=== PATIENT | male | born 1950 | race Caucasian/White ===

== ENCOUNTER 2022-12-01 02:36 | Observation (INO) | payer MEDICARE ==
[2022-12-01] MEDS ORDERED: MORPHINE SULFATE 4 MG INJ IV ONE (03:07)
[2022-12-01] MEDS ORDERED: Zofran 4 MG/2 ML VIAL IV ONE (03:07)
--- NOTE | 2022-12-01 03:12 | ERPHSYRPT ---
- History of Present Illness Time Seen by Provider: 12/01/22 03:10 Historian: patient Exam Limitations: no limitations Patient Subjective Stated Complaint: pt states crohns flare up Triage Nursing Assessment: pt ambulated into the er; pt is axo x4; c/o abd pain; pt is yelling out; pt is holding abd; garding abd; tenderness to abd; abd is round, distended; active bowel sounds in all quads; last BM 11/30/22; c/o vomiting; skin PDW; no respiratory distress; hypertension Physician History: Patient is a 72-year-old male presents to our emergency department for evaluation of abdominal pain. Patient has a history of Crohn's colitis and feels that he is currently experiencing a flareup. Symptoms started yesterday at approximately 3 PM. Patient states his symptoms have been progressive. Patient thought the pain would eventually go away however symptoms worsen. Patient states he mowed his lawn today which he feels acutely worsened patient's symptoms. Patient tried eating however he vomited up his meal. Patient states he cannot tolerate p.o. He had 1 regular bowel movement yesterday. Patient's pain described as an ache and is localized to the left lower quadrant. Palpation reproduces symptoms. No trauma. No fever. No diarrhea. Patient's GI doctor is Dr. Arana from [facility]. Patient voices no other complaints or concerns at this time. Portions of this note were created with voice recognition technology. There may be grammatical, spelling, punctuation or sound alike errors Timing/Duration: yesterday Activities at Onset: none Quality: aching Abdominal Pain Onset Location: generalized abdomen Pain Radiation: no radiation Severity of Pain-Max: moderate Severity of Pain-Current: mild Modifying Factors: Improves With: palpation Associated Symptoms: vomiting Previous symptoms: same symptoms as today (Symptoms today are similar to prev ious symptoms of Crohn's colitis flareup) Allergies/Adverse Reactions: No Known Drug Allergies Allergy (Verified 12/01/22 02:46) Home Medications: Amlodipine Besylate 5 mg [Norvasc 5 mg] 5 mg PO BID 04/15/16 [History] Aspirin [Aspir-Low] 81 mg PO DAILY 04/15/16 [History] Cholecalciferol (Vitamin D3) [Vitamin D] 400 unit PO DAILY 04/15/16 [History] Clopidogrel Bisulfate [PLAVIX 75 MG Tablet] 75 mg PO DAILY 04/15/16 [History] Insulin Lispro [Humalog] 20 unit SQ BID 04/15/16 [History] Magnesium Oxide 400 mg [Mag-Ox 400] 400 mg PO TID 04/15/16 [History] Metformin HCl [Glucophage] 1,000 mg PO BID 04/15/16 [History] Metoprolol Tartrate 50 mg [Lopressor 50 MG] 50 mg PO BID 04/15/16 [History] Terazosin HCl 5 mg PO HS 04/15/16 [History] azaTHIOprine [Azathioprine] 100 mg PO BID 04/15/16 [History] hydroCHLOROthiazide [Hydrochlorothiazide] 12.5 mg PO DAILY 04/15/16 [History] Atorvastatin Calcium [Lipitor 20MG Tablet] 20 mg PO DAILY 12/01/22 [History] Canagliflozin [Invokana] 300 mg PO DAILY 12/01/22 [History] Nitroglycerin 0.4 mg Tablet [Nitrostat 0.4 MG Tablet] 0.4 mg SL UD PRN 12/01/22 [History] PANTOPRAZOLE 40 mg Tablet [Protonix 40MG Tablet] 40 mg PO DAILY 12/01/22 [History] Pregabalin 150 mg PO BID 12/01/22 [History] Tamsulosin HCl 0.4 mg [Flomax 0.4 MG] 0.4 mg PO DAILY 12/01/22 [History] glipiZIDE [Glipizide] 5 mg PO DAILY 12/01/22 [History] lisinopriL [Lisinopril] 40 mg PO BID 12/01/22 [History] Hx Tetanus, Diphtheria Vaccination/Date Given: No Hx Influenza Vaccination/Date Given: Yes Hx Pneumococcal Vaccination/Date Given: No Immunizations Up to Date: Yes Travel Risk - International Travel Have you traveled outside of the country in past 3 weeks: No - Coronavirus Screening Are you exhibiting any of the following symptoms?: No Close contact with a COVID-19 positive Pt in past 14-21 Days: No - Vaccine Status Have you recieved a Covid-19 vaccination: No Remedial Reading Teacher: Moderna - Vaccination Dates Date of 2cond Vaccination (if applicable): 2020 - Review of Systems Constitutional: No Symptoms, No Fever, No Chills Eyes: No Symptoms Ears, Nose, & Throat: No Symptoms Respiratory: No Symptoms, No Cough, No Dyspnea Cardiac: No Symptoms, No Chest Pain, No Edema, No Syncope Abdominal/Gastrointestinal: No Symptoms, No Abdominal Pain, No Nausea, No Vomiting, No Diarrhea Genitourinary Symptoms: No Symptoms, No Dysuria Musculoskeletal: No Symptoms, No Back Pain, No Neck Pain Skin: No Symptoms, No Rash Neurological: No Symptoms, No Dizziness, No Focal Weakness, No Sensory Changes Psychological: No Symptoms Endocrine: No Symptoms Hematologic/Lymphatic: No Symptoms Immunological/Allergic: No Symptoms All Other Systems: Reviewed and Negative - Past Medical History Pertinent Past Medical History: No Neurological History: No Pertinent History ENT History: Cataracts, Glaucoma Cardiac History: Coronary Artery Disease, Hypertension, Myocardial Infarction ([place]) Respiratory History: No Pertinent History Endocrine Medical History: Diabetes Type II Musculoskeletal History: Osteoarthritis GI Medical History: Crohns Disease History: No Pertinent History Psycho-Social History: No Pertinent History Male Reproductive Disorders: No Pertinent History - Past Surgical History Past Surgical History: Yes Neuro Surgical History: No Pertinent History Cardiac: Cardiac Catheterization, Cardiac Stent Respiratory: No Pertinent History Gastrointestinal: Colon Resection Genitourinary: No Pertinent History Musculoskeletal: No Pertinent History Male Surgical History: No Pertinent History - Social History Smoking Status: Former smoker Exposure to second hand smoke: No Drug Use: none Patient Lives Alone: Yes - Nursing Vital Signs Nursing Vital Signs: Initial Vital Signs Pulse Rate 99 H 12/01/22 02:48 Blood Pressure 154/93 12/01/22 02:48 O2 Sat by Pulse Oximetry 95 12/01/22 02:48 Pain Scale Pain Intensity 5 - Physical Exam General Appearance: no apparent distress, alert Eye Exam: PERRL/EOMI, eyes nml inspection Ears, Nose, Throat Exam: normal ENT inspection, pharynx normal, moist mucous membranes Neck Exam: normal inspection, non-tender, supple, full range of motion Respiratory Exam: normal breath sounds, lungs clear, airway intact, No respiratory distress Cardiovascular Exam: regular rate/rhythm, normal heart sounds Gastrointestinal/Abdomen Exam: soft, tenderness (Diffuse tenderness more so at the left lower quadrant), distention (Abdomen is distended. Overlying soft tissue intact.), No mass Back Exam: normal inspection, normal range of motion, No CVA tenderness, No vertebral tenderness Extremity Exam: normal inspection, normal range of motion, pelvis stable Neurologic Exam: alert, oriented x 3, cooperative, normal mood/affect, nml cereb ellar function, sensation nml, No motor deficits Skin Exam: normal color, warm, dry Lymphatic Exam: No adenopathy SpO2 Interpretation: normal SpO2: 95 O2 Delivery: Room Air - Course Nursing assessment & vital signs reviewed: Yes - CT Exams Abdomen/Pelvis CT Interpretation: Tele-radiologist Report (Acute/subacute small bowel obstruction with possible transition point noted in the distal ileal loops in the right lower quadrant associated with mild adjacent mesenteric fat extending and increased vascularity.) Ordered Tests: Active Orders 24 hr Category Date Time Status IV Insertion STAT Care 12/01/22 03:07 Active NGT [Gastric Tube Insertion] STAT Care 12/01/22 04:37 Active ABDOMEN AND PELVIS W/0 CONTRAS [CT] Stat Exams 12/01/22 03:08 Completed CBC W DIFF Stat Lab 12/01/22 03:15 Completed CMP Stat Lab 12/01/22 03:15 Completed LIPASE Stat Lab 12/01/22 03:15 Completed TROPONIN Q4H Lab 12/01/22 03:15 Completed TROPONIN Q4H Lab 12/01/22 07:15 Ordered TROPONIN Q4H Lab 12/01/22 11:15 Ordered UA W/RFX UR CULTURE Stat Lab 12/01/22 03:07 Ordered Medication Summary Generic Name Dose Route Start Last Admin Trade Name Freq PRN Reason Stop Dose Admin Sodium Chloride 1,000 mls @ 100 mls/hr 12/01/22 03:15 12/01/22 03:32 Sodium Chloride 0.9% 1000 Ml IV 12/31/22 03:14 100 mls/hr .Q10H KENROY Administration Discontinued Medications Generic Name Dose Route Start Last Admin Trade Name Freq PRN Reason Stop Dose Admin Morphine Sulfate 4 mg 12/01/22 03:07 12/01/22 03:32 Morphine Sulfate 4 Mg/Ml Injection IV 12/01/22 03:08 4 mg STAT ONE Administration Morphine Sulfate Confirm 12/01/22 03:16 Morphine Sulfate 4 Mg/Ml Injection Administered 12/01/22 03:17 Dose 4 mg .ROUTE .STK-MED ONE Ondansetron HCl 4 mg 12/01/22 03:07 12/01/22 03:32 Ondansetron Hcl 4 Mg/2 Ml Vial IV 12/01/22 03:08 4 mg STAT ONE Administration Ondansetron HCl Confirm 12/01/22 03:16 Ondansetron Hcl 4 Mg/2 Ml Vial Administered 12/01/22 03:17 Dose 4 mg .ROUTE .STK-MED ONE Lab/Rad Data: Laboratory Result Diagrams 12/01/22 03:15 12/01/22 03:15 Laboratory Results 12/01/22 12/01/22 12/01/22 Range/Units 03:15 03:15 03:15 WBC 10.0 (4.0-10.5) x10^3/uL RBC 4.84 (4.1-5.6) x10^6/uL Hgb 15.6 (12.5-18.0) g/dL Hct 49.6 (42-50) % MCV 102.5 H (78-100) fL MCH 32.2 H (26-32) pg MCHC 31.5 L (32-36) g/dL RDW 14.1 H (11.5-14.0) % Plt Count 304 (150-450) x10^3/uL MPV 9.5 (7.5-11.0) fL Gran % 85.5 H (36.0-66.0) % Immature Gran % (Auto) 0.5 H (0.00-0.4) % Nucleat RBC Rel Count 0.0 (0.00-0.1) % Eos # (Auto) 0.01 (0-0.5) x10^3/uL Immature Gran # (Auto) 0.05 H (0.00-0.03) x10^3u/L Absolute Lymphs (auto) 0.62 L (1.0-4.6) x10^3/uL Absolute Monos (auto) 0.74 (0.0-1.3) x10^3/uL Absolute Nucleated RBC 0.00 (0.00-0.01) x10^3u/L Lymphocytes % 6.2 L (24.0-44.0) % Monocytes % 7.4 (0.0-12.0) % Eosinophils % 0.1 (0.00-5.0) % Basophils % 0.3 (0.0-0.4) % Absolute Granulocytes 8.53 H (1.4-6.9) x10^3/uL Basophils # 0.03 (0-0.4) x10^3/uL Sodium 139 (137-145) mmol/L Potassium 4.3 (3.5-5.1) mmol/L Chloride 101 (98-107) mmol/L Carbon Dioxide 26 (22-30) mmol/L Anion Gap 16.0 H (5-15) MEQ/L BUN 19 (9-20) mg/dL Creatinine 0.84 (0.66-1.25) mg/dL Estimated GFR > 60.0 ML/MIN Glucose 198 H (74-106) mg/dL Calcium 11.2 H (8.4-10.2) mg/dL Total Bilirubin 1.80 H (0.2-1.3) mg/dL AST 78 H (17-59) U/L ALT 68 H (0-50) U/L Alkaline Phosphatase 69 (38-126) U/L Troponin I < 0.012 (0.000-0.034) ng/mL Serum Total Protein 8.1 (6.3-8.2) g/dL Albumin 4.9 (3.5-5.0) g/dL Lipase 60 (23-300) U/L - Progress Progress: improved Progress Note: Case discussed with Dr. Bravo general surgeon on-call who advises admission. He will see patient and the hospital. Conversation took place at 4:43 AM. Plan of care discussed with patient. He agrees to admission at [facility] for further evaluation and treatment. Portions of this note were created with voice recognition technology. There may be grammatical, spelling, punctuation or sound alike errors 12/01/22 04:43 Patient is a 72-year-old male with a history of diabetes, coronary artery disease, hypertension cardiac sten, Crohn's disease and small bowel resection presents to our ED for evaluation of 1 day history of progressive abdominal distention and pain. 1 bout of nonbloody nonbilious emesis. Physical exam reveals diffuse abdominal distention and tenderness however more so in the left lower quadrant. CT scan reveals a small bowel obstruction with a transition point at the right distal ileum. There is associated mesenteric stranding at this area. CBC CMP otherwise nonremarkable. No leukocytosis. Lipase within normal limits. Troponin negative. Patient received morphine for pain control and Zofran for nausea. Patient is currently NPO. Liter of normal saline administered. Patient reassessed. He is resting comfortably. Case discussed with of general surgery who accepts consultation. Case to be discussed with hospitalist Dr. Ayon. Plan of care discussed with patient. NG tube placed to low intermittent suction. Patient agrees to admission to [facility] for further evaluation and treatment. Portions of this note were created with voice recognition technology. There may be grammatical, spelling, punctuation or sound alike errors Complexity of problems addressed is high. Severe exacerbation of chronic condition. This condition is a threat to bodily function. No critical care time Complexity of data reviewed and analyzed is extensive. Test ordered test reviewed. Results analyzed. Clinical correlation made between the findings of laboratory studies/ imaging studies versus history and physical examination. Case and management discussed with on-call general surgeon and hospitalist Risk complication and or risk morbidity/mortality patient management is high. Patient received IV controlled pain medication/morphine. Patient will require hospitalization for further evaluation and treatment. Vital stable. Diagnosis is small bowel obstruction. Time spent to admit patient approximately 15 minutes. Plan of care established for shared decision making. Patient declined additional pain medication. He voices no other complaints or concerns at this time. Portions of this note were created with voice recognition technology. There may be grammatical, spelling, punctuation or sound alike errors 12/01/22 04:[address] Ayon at [address] Ayon accepts admission to observation. 12/01/22 05:[address] Michelle Briggs Will see patient in: hospital (observation) Counseled pt/family regarding: lab results, diagnosis - Departure Departure Disposition: Observation Clinical Impression: Small bowel obstruction, Bilateral renal exophytic cyst, Abdominal pain Condition: Stable Critical Care Time: No Referrals: CHI KIMBLE [Primary Care Provider] - Follow up/PCP as directed
[2022-12-01] MEDS ORDERED: Sodium Chloride 0.9% 1000 ML 1,000 ML IV SCH (03:15)
[2022-12-01] MEDS ORDERED: Sodium Chloride 0.9% 1000 ML 1,000 ML ONE (03:16)
[2022-12-01] MEDS ORDERED: MORPHINE SULFATE 4 MG INJ ONE (03:16)
[2022-12-01] MEDS ORDERED: Zofran 4 MG/2 ML VIAL ONE (03:16)
[2022-12-01 03:27] LABS: Absolute Neutrophil Ct (ANC) 8.53 x10^3/uL (1.4-6.9); BASOPHIL % 0.3 % (0.0-0.4); Basophil (Absolute #) 0.03 x10^3/uL (0-0.4); Eosinophil % 0.1 % (0.00-5.0); Eosinophil (Absolute #) 0.01 x10^3/uL (0-0.5); Hematocrit 49.6 % (42-50); Hemoglobin 15.6 g/dL (12.5-18.0); IMMATURE GRAN # 0.05 x10^3u/L (0.00-0.03); IMMATURE GRAN % 0.5 % (0.00-0.4); Lymphocyte (Absolute #) 0.62 x10^3/uL (1.0-4.6); Lymphocytes % 6.2 % (24.0-44.0); Mean Cell Volume 102.5 fL (78-100); Mean Corpuscular Hemoglobin 32.2 pg (26-32); Mean Corpuscular Hgb Concent. 31.5 g/dL (32-36); Mean Platelet Volume 9.5 fL (7.5-11.0); Monocyte (Absolute #) 0.74 x10^3/uL (0.0-1.3); Monocytes % 7.4 % (0.0-12.0); Neutrophil % 85.5 % (36.0-66.0); Platelet Count 304 x10^3/uL (150-450); Red Blood Count 4.84 x10^6/uL (4.1-5.6); Red Cell Distribution Width 14.1 % (11.5-14.0)
[2022-12-01 03:43] LABS: ALBUMIN 4.9 g/dL (3.5-5.0); ALKALINE PHOSPHATASE 69 U/L (38-126); BLOOD UREA NITROGEN 19 mg/dL (9-20); CHLORIDE 101 mmol/L (98-107); Calcium 11.2 mg/dL (8.4-10.2); Carbon Dioxide 26 mmol/L (22-30); Creatinine 1 0.84 mg/dL (0.66-1.25); EST GLOMERULAR FILTRATION RATE > 60.0 ML/MIN; Glucose 198 mg/dL (74-106); LIPASE 60 U/L (23-300); Potassium 4.3 mmol/L (3.5-5.1); SGOT/AST 78 U/L (17-59); SGPT/ALT 68 U/L (0-50); SODIUM 139 mmol/L (137-145); Total Protein 8.1 g/dL (6.3-8.2)
--- NOTE | 2022-12-01 04:28 | XRAY ---
CLINICAL HISTORY:pain COMPARISON:None TECHNIQUE:Multiple axial sections of CT scan of the abdomen and pelvis were carried out without non-ionic IV contrast enhancement. Coronal and Sagittal reformations were also acquired.Total DLP 847.7mGy-cm CTDl 16.9mGY FINDINGS: The jejunal and ileal loops appear dilated maximum [id number] caliber of one loop measures 3.9cm. The dilated loops appear fecal loaded giving small bowel feces signs. There is a possible abrupt transition noted in the distal ileal loops in the right lower abdomen. There is mild adjacent mesenteric fat stranding along with increased vascularity noted. No free fluid seen No evidence of pneumoperitoneum. The visulaized bowel loop appears unremarkable. Surgical sutures in the bowel loops in the right lower quadrant. Overall imaging findings are Suggestive of acute/ subacute intestinal obstruction. Liver is normal in size. No focal mass seen. Intra and extra-hepatic biliary ducts are not dilated. Few calcified Granuloma noted in the Caudate lobe Gallbladder appears normal. No evidence of radio-opaque calculus, wall thickening or pericholecystic fluid. The spleen appears normal. No evidence of focal mass was seen. Pancreas appears normal. No evidence of mass lesion was noted. Both adrenal glands appear normal. No discrete lesion was noted. Both kidneys are normal in size. No evidence of focal mass, calculus or hydronephrosis was noted. Exophytic simple cortical cyst noted in both kidneys, on the right side it measures 3.8 x 2.9cm and on left it measures 1.3 x 0.8cm. Possible parapelvic cysts in the left kidney. The urinary bladder is smooth in outline, without evidence of wall thickening, vesical calculus or intraluminal mass. Pelvic viscera appear normal. No significant lymphadenopathy was seen. Atheromatous changes noted in aorta and its branches On appropriate lung window settings, There is ground-glass haze with prominent reticulation noted in the right lung base On bone window settings, Degenerative changes noted in the spine With multilevel osteophytes and vacuum phenomena IMPRESSION: 1. Overall imaging findings are suggestive of acute/subacute small bowel obstruction with a possible transition point noted in the distal ileal loops in the right lower abdomen associated with mild adjacent mesenteric fat extending and increased vascularity. Would recommend clinical correlation 2. No evidence of ascites or pneumoperitoneum. The [facility] ER office was called at [phone] at 03:19 AM SENIOR ENGINEERING TEAM LEADER, 12/01/2022 and the results were verbally communicated with Freya Electronically Signed by: Davidson Cunha MD. (12/01/2022 03:28:05 SENIOR ENGINEERING TEAM LEADER)
[2022-12-01] MEDS ORDERED: Zofran 4 MG/2 ML VIAL IV PRN (05:57)
[2022-12-01] MEDS ORDERED: HUMALOG SQ PRN (05:57)
--- NOTE | 2022-12-01 06:06 | PCM.HP ---
History of Present Illness - Chief Complaint Chief Complaint: Small bowel obstruction, abdominal pain History of Present Illness: is a 72 year old male with hx of Crohn's, HTN, DMII, BPH, HLP presented to ER with c/o severe left lower abd pain started yesterday. Pain is associated with nausea and vomiting. He had 1 BM since yesterday, and now unable to tolerate any oral foods/meds. In ER, CT scan shows SBO, and now admitted for this. Has NGT and NPO. General surgery has been consulted by ER and will see pt in AM He has had SBOs in the past - last one 5 yrs ago - and they both resolved on their own. Denies fever. No bloody stools. - Review of Systems Constitutional: No Symptoms Eyes: No Symptoms Ears, Nose, & Throat: No Symptoms Respiratory: No Symptoms Cardiac: No Symptoms Abdominal/Gastrointestinal: Abdominal Pain, Nausea, Vomiting Genitourinary Symptoms: No Symptoms Musculoskeletal: No Symptoms Skin: No Symptoms Neurological: No Symptoms Psychological: No Symptoms Endocrine: No Symptoms Hematologic/Lymphatic: No Symptoms Immunological/Allergic: No Symptoms Medications & Allergies Home Medications: Home Medication List Amlodipine Besylate 5 mg [Norvasc 5 mg] 5 mg PO BID 04/15/16 [History Confirmed 12/01/22] Aspirin [Aspir-Low] 81 mg PO DAILY 04/15/16 [History Confirmed 12/01/22] Cholecalciferol (Vitamin D3) [Vitamin D] 400 unit PO DAILY 04/15/16 [History Confirmed 12/01/22] Clopidogrel Bisulfate [PLAVIX 75 MG Tablet] 75 mg PO DAILY 04/15/16 [History Confirmed 12/01/22] Insulin Lispro [Humalog] 20 unit SQ BID 04/15/16 [History Confirmed 12/01/22] Magnesium Oxide 400 mg [Mag-Ox 400] 400 mg PO TID 04/15/16 [History Confirmed 12/01/22] Metformin HCl [Glucophage] 1,000 mg PO BID 04/15/16 [History Confirmed 12/01/22] Metoprolol Tartrate 50 mg [Lopressor 50 MG] 50 mg PO BID 04/15/16 [History Confirmed 12/01/22] Terazosin HCl 5 mg PO HS 04/15/16 [History Confirmed 12/01/22] azaTHIOprine [Azathioprine] 100 mg PO BID 04/15/16 [History Confirmed 12/01/22] hydroCHLOROthiazide [Hydrochlorothiazide] 12.5 mg PO DAILY 04/15/16 [History Confirmed 12/01/22] Atorvastatin Calcium [Lipitor 20MG Tablet] 20 mg PO DAILY 12/01/22 [History Confirmed 12/01/22] Canagliflozin [Invokana] 300 mg PO DAILY 12/01/22 [History Confirmed 12/01/22] Insulin Degludec [Tresiba Flextouch U-100] 65 unit SQ HS 12/01/22 [History Confirmed 12/01/22] Nitroglycerin 0.4 mg Tablet [Nitrostat 0.4 MG Tablet] 0.4 mg SL UD PRN 12/01/22 [History Confirmed 12/01/22] PANTOPRAZOLE 40 mg Tablet [Protonix 40MG Tablet] 40 mg PO DAILY 12/01/22 [History Confirmed 12/01/22] Pregabalin 150 mg PO BID 12/01/22 [History Confirmed 12/01/22] Tamsulosin HCl 0.4 mg [Flomax 0.4 MG] 0.4 mg PO BID 12/01/22 [History Confirmed 12/01/22] glipiZIDE [Glipizide] 5 mg PO DAILY 12/01/22 [History Confirmed 12/01/22] lisinopriL [Lisinopril] 40 mg PO BID 12/01/22 [History Confirmed 12/01/22] Allergies/Adverse Reactions: Allergies Allergy/AdvReac Type Severity Reaction Status Date / Time No Known Drug Allergies Allergy Verified 12/01/22 02:46 - Past Medical History Past Medical History: Yes Neurological History: No Pertinent History ENT History: Cataracts, Glaucoma Cardiac History: Coronary Artery Disease, Hypertension, Myocardial Infarction ([place]) Respiratory History: No Pertinent History Endocrine Medical History: Diabetes Type II Musculoskelatal History: Osteoarthritis GI Medical History: Crohns Disease, GERD History: No Pertinent History Pyscho-Social History: No Pertinent History Male Reproductive Disorders: Prostate Problems - Past Surgical History Past Surgical History: Yes Neuro Surgical History: No Pertinent History Cardiac History: Cardiac Catheterization, Cardiac Stent Respiratory Surgery: No Pertinent History GI Surgical History: Colon Resection Genitourinary Surgical Hx: No Pertinent History Musculskeletal Surgical Hx: No Pertinent History Male Surgical History: No Pertinent History - Social History Smoking Status: Former smoker Exposure to second hand smoke: No Alcohol: Occasionally Drug Use: none Significant Family History: no pertinent family hx - Physical Exam Vital Signs: Vital Signs - 24 hr Pulse BP Pulse Ox 12/01/22 05:01 95 12/01/22 05:00 94 H 111/69 96 12/01/22 04:30 94 H 123/77 92 L 12/01/22 04:01 107/71 92 L 12/01/22 03:31 98 H 122/89 92 L 12/01/22 03:00 130/88 94 L 12/01/22 02:57 147/94 95 12/01/22 02:48 99 H 154/93 95 General Appearance: mild distress Neurologic Exam: alert, oriented x 3, cooperative Eye Exam: PERRL/EOMI, eyes nml inspection Ears, Nose, Throat Exam: normal ENT inspection Neck Exam: normal inspection, non-tender, supple Respiratory Exam: normal breath sounds, lungs clear, airway intact Cardiovascular Exam: regular rate/rhythm, normal heart sounds Gastrointestinal/Abdomen Exam: tenderness, distention, guarding Rectal Exam: deferred Back Exam: normal inspection, normal range of motion Extremity Exam: normal inspection Skin Exam: normal color, warm, dry Results - Labs Lab/Micro Results: Lab Results-Last 24 Hours 12/01/22 12/01/22 12/01/22 Range/Units 03:15 03:15 03:15 WBC 10.0 (4.0-10.5) x10^3/uL RBC 4.84 (4.1-5.6) x10^6/uL Hgb 15.6 (12.5-18.0) g/dL Hct 49.6 (42-50) % MCV 102.5 H (78-100) fL MCH 32.2 H (26-32) pg MCHC 31.5 L (32-36) g/dL RDW 14.1 H (11.5-14.0) % Plt Count 304 (150-450) x10^3/uL MPV 9.5 (7.5-11.0) fL Gran % 85.5 H (36.0-66.0) % Immature Gran % (Auto) 0.5 H (0.00-0.4) % Nucleat RBC Rel Count 0.0 (0.00-0.1) % Eos # (Auto) 0.01 (0-0.5) x10^3/uL Immature Gran # (Auto) 0.05 H (0.00-0.03) x10^3u/L Absolute Lymphs (auto) 0.62 L (1.0-4.6) x10^3/uL Absolute Monos (auto) 0.74 (0.0-1.3) x10^3/uL Absolute Nucleated RBC 0.00 (0.00-0.01) x10^3u/L Lymphocytes % 6.2 L (24.0-44.0) % Monocytes % 7.4 (0.0-12.0) % Eosinophils % 0.1 (0.00-5.0) % Basophils % 0.3 (0.0-0.4) % Absolute Granulocytes 8.53 H (1.4-6.9) x10^3/uL Basophils # 0.03 (0-0.4) x10^3/uL Sodium 139 (137-145) mmol/L Potassium 4.3 (3.5-5.1) mmol/L Chloride 101 (98-107) mmol/L Carbon Dioxide 26 (22-30) mmol/L Anion Gap 16.0 H (5-15) MEQ/L BUN 19 (9-20) mg/dL Creatinine 0.84 (0.66-1.25) mg/dL Estimated GFR > 60.0 ML/MIN Glucose 198 H (74-106) mg/dL Calcium 11.2 H (8.4-10.2) mg/dL Total Bilirubin 1.80 H (0.2-1.3) mg/dL AST 78 H (17-59) U/L ALT 68 H (0-50) U/L Alkaline Phosphatase 69 (38-126) U/L Troponin I < 0.012 (0.000-0.034) ng/mL Serum Total Protein 8.1 (6.3-8.2) g/dL Albumin 4.9 (3.5-5.0) g/dL Lipase 60 (23-300) U/L - Radiology Impressions Radiology Exams & Impressions: Radiology Procedures Category Date Time Status ABDOMEN AND PELVIS W/0 CONTRAS [CT] Stat Exams 12/01/22 03:08 Completed CHEST 1 VIEW (PORTABLE) Stat Exams 12/01/22 05:00 Taken Assessment/Plan (1) Small bowel obstruction Current Visit: Yes Status: Acute Assessment & Plan: SBO noted on CT scan. NPO and NGT to suction. Surgery to see. Prn morphine for pain Code(s): K56.609 - UNSP INTESTNL OBST, UNSP TO PARTIAL VERSUS COMPLETE OBST (2) Crohn disease Current Visit: Yes Status: Acute Assessment & Plan: Denies any recent bloody stools. Now here with SBO - managing that Code(s): K50.90 - CROHN'S DISEASE, UNSPECIFIED, WITHOUT COMPLICATIONS (3) Hypercalcemia Current Visit: Yes Status: Acute Assessment & Plan: Ca 11.2, dehydration and thiaizide, + Vit D. Holding all meds tonight due to NPO status. Will monitor calcium on IVF. If this remains a concern, then will need to hold Vit D and thiazide in longer term Code(s): E83.52 - HYPERCALCEMIA (4) Transaminitis Current Visit: Yes Status: Acute Assessment & Plan: Bili 1.8, AST 78, ALT 68, AP is 69. CT scan mentioned "normal liver". No stone or CBD dilatation was mentioned. Likely unrelated to SBO. We will monitor this closely and f/up as needed He went to a wine festival recently. But he normally does not drink alcohol regularly Code(s): R74.01 - ELEVATION OF LEVELS OF LIVER TRANSAMINASE LEVELS (5) Essential (primary) hypertension Current Visit: Yes Status: Acute Assessment & Plan: BP is not high. Holding oral meds due to NPO status. If higher, can use prn IV BP meds Code(s): I10 - ESSENTIAL (PRIMARY) HYPERTENSION (6) Diabetes mellitus, type II Current Visit: Yes Status: Acute Assessment & Plan: NPO. Starting D5 1/2 NS at 100ml/hr. Accucheck and low dose SSI. Telemedicine Encounter - Telemedicine Encounter Telemedicine Encounter: The entirety of this encounter was performed via Telemedicine" Pt gace me verbal consent to have this telemedicine visit
[2022-12-01] MEDS: MORPHINE SULFATE 4 MG INJ IV PRN ×3 (06:27→14:46)
[2022-12-01] MEDS: Dextrose 5% -0.45 NaCl 1000 ML 1,000 ML IV SCH ×2 (06:30→15:39)
--- NOTE | 2022-12-01 08:36 | XRAY ---
Indication: NG tube placement. Comparison: None Portable chest demonstrates NG tube tip in stomach. Lungs demonstrate minimal bibasilar subsegmental atelectasis/scarring. Remaining heart and lungs unremarkable. Bony thorax intact with osteopenia and mild degenerative changes.
[2022-12-01 10:23] LABS: Appearance Clear (Clear); Bacteria None Seen /HPF (None Seen); Bilirubin Negative (Negative); Blood Negative (Negative); Epithelial Cells None Seen /HPF (None Seen); Glucose, Urine >=1000 mg/dL (Negative); Hyaline Casts NONE SEEN /LPF (0-2); Ketones 40 (Negative); Leukocyte Esterase Negative (Negative); Nitrite Negative (Negative); Ph 5.5 (4.6-8.0); Protein,Urine Dip Negative (Negative); RBC 0-2 /HPF (0-5); Specific Gravity >=1.030 (1.005-1.030); WBC 0-2 /HPF (0-5)
[2022-12-01 10:33] LABS: ADD URINE CULTURE? NO (NO)
--- NOTE | 2022-12-01 10:48 | CONS ---
CONSULT DATE: 12/01/2022 HISTORY OF PRESENT ILLNESS: Patient is a 72 year-old male who presented yesterday with complaints of abdominal pain, nausea, and vomiting. Patient has a history of Crohn's disease. He takes azathioprine bid. His brand ambassador promotional model is Dr. Cano. Reports that he had not had a colonoscopy for 2-3 years now. He states his last bowel obstruction was about 6 or 7 years ago. He does have history of abdominal surgery X 1 for an obstruction. It appears that he had surgical changes in the right colon area. He does complain of a little discomfort today. He is not overly distended or tender. He is soft. He does have a CT scan with some dilated loops in his distal ileum. He is not passing any flatus today. He is insisting that his NG tube be removed as it is uncomfortable. PAST MEDICAL HISTORY: Crohn's disease, hypertension, hyperlipidemia, coronary artery disease, diabetes, benign prostatic hypertrophy, gastroesophageal reflux disease. CURRENT MEDICATIONS: Per chart. ALLERGIES: NKDA. PAST SURGERIES: Abdominal surgery X 1 for past obstruction, cardiac stents. SOCIAL HISTORY: None reported. FAMILY HISTORY: None reported. REVIEW OF SYSTEMS: CONSTITUTIONAL: Denies fever or chills. CHEST: Denies chest pain. CARDIAC: Denies tachycardia. ABDOMEN: Reports abdominal pain. Denies nausea or vomiting. Denies flatus. PHYSICAL EXAMINATION: GENERAL: No acute distress. CHEST: Nonlabored. No shortness of breath. CVS: Regular rate and rhythm. ABDOMEN: Soft. Mildly tender right side, round. IMPRESSION: 1. 72 YEAR-OLD MALE WITH HISTORY OF CROHN'S DISEASE ESTABLISHED WITH GASTROINTESTINAL AND CURRENTLY COMPLIANT WITH MAINTENANCE MEDICINES. CT scan reviewed - Dilated loops of his distal ileum. He is not overly tender today. He is not passing gas. We will keep him NPO and NG tube in place. Will follow daily. If he does not progress, will consider small bowel follow through. He is due for a colonoscopy as well. We will continue to monitor him. He is a Crohn's patient and does have a cardiac history. If there was a need for surgery, we could likely consider transferring this patient to where there is cardiac and gastroenterology services. This report was dictated for Dr. Rao by Zuleyka Calvin NP.
[2022-12-01 11:55] LABS: Hematocrit 47.6 % (42-50); Hemoglobin 14.9 g/dL (12.5-18.0); Mean Cell Volume 103.5 fL (78-100); Mean Corpuscular Hemoglobin 32.4 pg (26-32); Mean Corpuscular Hgb Concent. 31.3 g/dL (32-36); Mean Platelet Volume 8.8 fL (7.5-11.0); Platelet Count 260 x10^3/uL (150-450); Red Cell Distribution Width 14.3 % (11.5-14.0); White Blood Count 8.6 x10^3/uL (4.0-10.5)
[2022-12-01 12:22] LABS: ALBUMIN 4.5 g/dL (3.5-5.0); ALKALINE PHOSPHATASE 59 U/L (38-126); ANION GAP 14.4 MEQ/L (5-15); BLOOD UREA NITROGEN 20 mg/dL (9-20); CHLORIDE 101 mmol/L (98-107); Calcium 10.5 mg/dL (8.4-10.2); Carbon Dioxide 29 mmol/L (22-30); Creatinine 1 0.75 mg/dL (0.66-1.25); EST GLOMERULAR FILTRATION RATE > 60.0 ML/MIN; Glucose 152 mg/dL (74-106); Potassium 4.3 mmol/L (3.5-5.1); SGOT/AST 48 U/L (17-59); SGPT/ALT 57 U/L (0-50); SODIUM 141 mmol/L (137-145); Total Protein 7.5 g/dL (6.3-8.2)
[2022-12-01] MEDS: Hydromorphone 1 mg/ml Injection IV PRN ×2 (17:24→22:40)
[2022-12-01] MEDS: Compazine 10 MG/2 ML IV PRN (17:24)
[2022-12-02] MEDS: Dextrose 5% -0.45 NaCl 1000 ML 1,000 ML IV SCH ×2 (01:06→11:20)
[2022-12-02] MEDS: Hydromorphone 1 mg/ml Injection IV PRN ×4 (03:20→14:29)
[2022-12-02] MEDS: Compazine 10 MG/2 ML IV PRN ×2 (03:21→11:21)
[2022-12-02 04:44] LABS: Hematocrit 47.1 % (42-50); Hemoglobin 14.6 g/dL (12.5-18.0); Mean Cell Volume 104.4 fL (78-100); Mean Corpuscular Hemoglobin 32.4 pg (26-32); Mean Platelet Volume 9.2 fL (7.5-11.0); Platelet Count 265 x10^3/uL (150-450); Red Blood Count 4.51 x10^6/uL (4.1-5.6); Red Cell Distribution Width 14.6 % (11.5-14.0); White Blood Count 7.1 x10^3/uL (4.0-10.5)
[2022-12-02 05:26] LABS: ALBUMIN 4.2 g/dL (3.5-5.0); ALKALINE PHOSPHATASE 63 U/L (38-126); ANION GAP 12.3 MEQ/L (5-15); BLOOD UREA NITROGEN 18 mg/dL (9-20); CHLORIDE 100 mmol/L (98-107); Calcium 9.9 mg/dL (8.4-10.2); Carbon Dioxide 30 mmol/L (22-30); Creatinine 1 0.78 mg/dL (0.66-1.25); EST GLOMERULAR FILTRATION RATE > 60.0 ML/MIN; Glucose 161 mg/dL (74-106); Potassium 4.3 mmol/L (3.5-5.1); SGOT/AST 37 U/L (17-59); SGPT/ALT 46 U/L (0-50); SODIUM 138 mmol/L (137-145)
--- NOTE | 2022-12-02 11:00 | CONS ---
CONSULT DATE: 12/01/2022 HISTORY OF PRESENT ILLNESS: Mr. Resendiz apparently had his initial episode about 18 years ago. He thinks he had a surgical resection, probably a partial ileocolectomy. He only had 1 operation. He didn't have any additional operations. He had this at [facility]. I mentioned a long list of surgeons including myself and our group, but he did not remember the surgeon at all. At that time, the surgical staff was quite constant there at [facility]. I am surprised that he could not name the surgeon, but he did not. He has been under the care of Dr. Virgil Cano and he is on the medication. I think just a traditional Asacol-like drug. He has not been on any biologic. He was not having any trouble though about 20 hours ago. He developed acute abdominal pain followed by vomiting. He has a nasogastric tube in place now and it is quite foul. It is green and a little dark with some brown flecks. It is clearly an obstructing nature on his nasogastric. His abdomen is mildly distended and somewhat tympanic. He is not bouncing platelets at this time. His plain films suggest small bowel obstruction. He has required some pain medication. He does not look toxic. He does have IV fluids started. He is on the medical service. He has electrolytes, IV fluids, etc. for that. At this time, I doubt he is going to require surgical intervention. He might require a burst of high-dose steroids. He certainly has the initial things in place, nasogastric tube, IV fluids, and gastrointestinal rest. PLAN: We will follow-up medical. His gastrointestinal doctor is in [facility]. If he needs extensive medical treatment, he will need transferred there. If he starts to get better, he could certainly stay in [place]. He might benefit from a course of steroids, but I don't think we have to start them immediately, but if he does not open up or start to open up, it is a strong consideration. We will follow along with medical.
[2022-12-02 11:36] VITALS: BP 157/74; PULSE 89; RESP 18; TEMP 98.7; O2SAT 96
--- NOTE | 2022-12-02 12:21 | PCM.NOTE ---
Date and Time: 12/02/22 1214 Subjective Assessment: 12/01/22 is a 72 year old male with hx of Crohn's, HTN, DMII, BPH, HLP presented to ER with c/o severe left lower abd pain started yesterday. Pain is associated with nausea and vomiting. He had 1 BM since yesterday, and now unable to tolerate any oral foods/meds. In ER, CT scan shows SBO, and now admitted for this. Has NGT and NPO. General surgery has been consulted by ER and will see pt in AM. He has had SBOs in the past - last one 5 yrs ago - and they both resolved on their own. Denies fever. No bloody stools. 12/02/22 Pt resting in bed. He continues to have abd. pain. Dilaudid changed to Q3 hours. Abd. is distended, he has an NG with moderate amount of brown output. Surgery to see pt again today for further eval and make a decision if surgery is needed. Pt prefers not to have surgery unless necessary. Pt is irritable today. OBJECTIVE DATA Vital Signs: Vital Signs - 24 hr Temp Pulse Resp BP Pulse Ox 12/02/22 11:35 98.7 F 89 18 157/74 96 12/02/22 08:00 85 12/02/22 07:02 98.6 F 104 H 20 151/80 95 12/02/22 06:54 95 12/02/22 04:00 97.3 F 86 18 146/67 95 12/01/22 23:41 97.7 F 89 18 142/70 91 L 12/01/22 20:00 97.8 F 91 H 19 141/79 91 L 12/01/22 19:24 94 L 12/01/22 15:43 98.3 F 94 H 18 164/75 94 L Pain Assessment - Last Documented Pain Intensity 8 Pain Scale Used 0-10 Pain Scale Intake and Output: Intake & Output 11/30/22 12/01/22 12/02/22 12/03/22 11:59 11:59 11:59 11:59 Intake Total 0 2321 Output Total 400 600 Balance -400 1721 Weight 102.3 kg Lab Results: Lab Results-Last 24 Hours 12/01/22 12/01/22 12/01/22 Range/Units 11:52 11:52 11:52 WBC 8.6 (4.0-10.5) x10^3/uL RBC 4.60 (4.1-5.6) x10^6/uL Hgb 14.9 (12.5-18.0) g/dL Hct 47.6 (42-50) % MCV 103.5 H (78-100) fL MCH 32.4 H (26-32) pg MCHC 31.3 L (32-36) g/dL RDW 14.3 H (11.5-14.0) % Plt Count 260 (150-450) x10^3/uL MPV 8.8 (7.5-11.0) fL Sodium 141 (137-145) mmol/L Potassium 4.3 (3.5-5.1) mmol/L Chloride 101 (98-107) mmol/L Carbon Dioxide 29 (22-30) mmol/L Anion Gap 14.4 (5-15) MEQ/L BUN 20 (9-20) mg/dL Creatinine 0.75 (0.66-1.25) mg/dL Estimated GFR > 60.0 ML/MIN Glucose 152 H (74-106) mg/dL POC Glucometer (74 to 106) mg/dL Calcium 10.5 H (8.4-10.2) mg/dL Total Bilirubin 2.00 H (0.2-1.3) mg/dL AST 48 (17-59) U/L ALT 57 H (0-50) U/L Alkaline Phosphatase 59 (38-126) U/L Troponin I < 0.012 (0.000-0.034) ng/mL Serum Total Protein 7.5 (6.3-8.2) g/dL Albumin 4.5 (3.5-5.0) g/dL 12/01/22 12/01/22 12/02/22 Range/Units 16:33 21:56 04:15 WBC (4.0-10.5) x10^3/uL RBC (4.1-5.6) x10^6/uL Hgb (12.5-18.0) g/dL Hct (42-50) % MCV (78-100) fL MCH (26-32) pg MCHC (32-36) g/dL RDW (11.5-14.0) % Plt Count (150-450) x10^3/uL MPV (7.5-11.0) fL Sodium 138 (137-145) mmol/L Potassium 4.3 (3.5-5.1) mmol/L Chloride 100 (98-107) mmol/L Carbon Dioxide 30 (22-30) mmol/L Anion Gap 12.3 (5-15) MEQ/L BUN 18 (9-20) mg/dL Creatinine 0.78 (0.66-1.25) mg/dL Estimated GFR > 60.0 ML/MIN Glucose 161 H (74-106) mg/dL POC Glucometer 145 H 142 H (74 to 106) mg/dL Calcium 9.9 (8.4-10.2) mg/dL Total Bilirubin 2.30 H (0.2-1.3) mg/dL AST 37 (17-59) U/L ALT 46 (0-50) U/L Alkaline Phosphatase 63 (38-126) U/L Troponin I (0.000-0.034) ng/mL Serum Total Protein 7.0 (6.3-8.2) g/dL Albumin 4.2 (3.5-5.0) g/dL 12/02/22 12/02/22 12/02/22 Range/Units 04:15 06:36 11:06 WBC 7.1 (4.0-10.5) x10^3/uL RBC 4.51 (4.1-5.6) x10^6/uL Hgb 14.6 (12.5-18.0) g/dL Hct 47.1 (42-50) % MCV 104.4 H (78-100) fL MCH 32.4 H (26-32) pg MCHC 31.0 L (32-36) g/dL RDW 14.6 H (11.5-14.0) % Plt Count 265 (150-450) x10^3/uL MPV 9.2 (7.5-11.0) fL Sodium (137-145) mmol/L Potassium (3.5-5.1) mmol/L Chloride (98-107) mmol/L Carbon Dioxide (22-30) mmol/L Anion Gap (5-15) MEQ/L BUN (9-20) mg/dL Creatinine (0.66-1.25) mg/dL Estimated GFR ML/MIN Glucose (74-106) mg/dL POC Glucometer 172 H 154 H (74 to 106) mg/dL Calcium (8.4-10.2) mg/dL Total Bilirubin (0.2-1.3) mg/dL AST (17-59) U/L ALT (0-50) U/L Alkaline Phosphatase (38-126) U/L Troponin I (0.000-0.034) ng/mL Serum Total Protein (6.3-8.2) g/dL Albumin (3.5-5.0) g/dL Radiology Exams: Radiology Procedures Category Date Time Status ABDOMEN AND PELVIS W/0 CONTRAS [CT] Stat Exams 12/01/22 03:08 Completed CHEST 1 VIEW (PORTABLE) Stat Exams 12/01/22 05:00 Completed Multi-Disciplinary Progress Notes: Multi-Disciplinary Progress Notes 12/02/22 10:46 Case Management Note by Carla Butterfield S/W PATIENT- HE CONTINUES TO DENY ANY NEW NEEDS AT TIME OF DC. HE PLANS TO DC HOME TO HIS PLF AT TIME OF DC. Initialized on 12/02/22 10:46 - END OF NOTE
--- NOTE | 2022-12-02 12:29 | PCM.DS ---
Discharge Summary Date of Admission: 12/01/22 05:22 Date of Discharge: 12/02/22 Admitting Physician: TIFFANY VAZQUEZ DO Consults: Consults on Case 12/01/22 05:24 Consult Surgery ROUTINE Primary Care Provider: CHI KIMBLE Allergies Allergies No Known Drug Allergies Allergy (Verified 12/01/22 02:46) Hospital Summary - Hospital Course Hospital Course: 12/01/22 is a 72 year old male with hx of Crohn's, HTN, DMII, BPH, HLP presented to ER with c/o severe left lower abd pain started yesterday. Pain is associated with nausea and vomiting. He had 1 BM since yesterday, and now unable to t olerate any oral foods/meds. In ER, CT scan shows SBO, and now admitted for this. Has NGT and NPO. General surgery has been consulted by ER and will see pt in AM He has had SBOs in the past - last one 5 yrs ago - and they both resolved on their own. Denies fever. No bloody stools. 12/02/22 Pt resting in bed. He continues to be in quite a bit of pain. Abd. is more distended today. NG in place with moderate amount of brown output. Dilaudid changed to Q3 hrs PRN. He did not tolerate Morphine so pain medication was changed to Dilaudid yesterday. Surgery would like pt tx to [facility] for further eval by GI - Dr. Cano. Dr. Rao feels his sxs are r/t his Crohn's. Pt denies any further concerns than abd pain. - Vitals & Intake/Output Vital Signs: Vital Signs Temperature 98.7 F 12/02/22 11:35 Pulse Rate 89 12/02/22 11:35 Respiratory Rate 18 12/02/22 11:35 Blood Pressure 157/74 12/02/22 11:35 O2 Sat by Pulse Oximetry 96 12/02/22 11:35 Intake & Output: Intake & Output 11/30/22 12/01/22 12/02/22 12/03/22 11:59 11:59 11:59 11:59 Intake Total 0 2321 Output Total 400 600 Balance -400 1721 Weight 102.3 kg - Lab Result Diagrams: 12/02/22 04:15 12/02/22 04:15 Lab Results-Last 24 Hrs: Lab Results-Last 24 Hours 12/01/22 12/01/22 12/01/22 Range/Units 11:52 11:52 16:33 WBC (4.0-10.5) x10^3/uL RBC (4.1-5.6) x10^6/uL Hgb (12.5-18.0) g/dL Hct (42-50) % MCV (78-100) fL MCH (26-32) pg MCHC (32-36) g/dL RDW (11.5-14.0) % Plt Count (150-450) x10^3/uL MPV (7.5-11.0) fL Sodium 141 (137-145) mmol/L Potassium 4.3 (3.5-5.1) mmol/L Chloride 101 (98-107) mmol/L Carbon Dioxide 29 (22-30) mmol/L Anion Gap 14.4 (5-15) MEQ/L BUN 20 (9-20) mg/dL Creatinine 0.75 (0.66-1.25) mg/dL Estimated GFR > 60.0 ML/MIN Glucose 152 H (74-106) mg/dL POC Glucometer 145 H (74 to 106) mg/dL Calcium 10.5 H (8.4-10.2) mg/dL Total Bilirubin 2.00 H (0.2-1.3) mg/dL AST 48 (17-59) U/L ALT 57 H (0-50) U/L Alkaline Phosphatase 59 (38-126) U/L Troponin I < 0.012 (0.000-0.034) ng/mL Serum Total Protein 7.5 (6.3-8.2) g/dL Albumin 4.5 (3.5-5.0) g/dL 12/01/22 12/02/22 12/02/22 Range/Units 21:56 04:15 04:15 WBC 7.1 (4.0-10.5) x10^3/uL RBC 4.51 (4.1-5.6) x10^6/uL Hgb 14.6 (12.5-18.0) g/dL Hct 47.1 (42-50) % MCV 104.4 H (78-100) fL MCH 32.4 H (26-32) pg MCHC 31.0 L (32-36) g/dL RDW 14.6 H (11.5-14.0) % Plt Count 265 (150-450) x10^3/uL MPV 9.2 (7.5-11.0) fL Sodium 138 (137-145) mmol/L Potassium 4.3 (3.5-5.1) mmol/L Chloride 100 (98-107) mmol/L Carbon Dioxide 30 (22-30) mmol/L Anion Gap 12.3 (5-15) MEQ/L BUN 18 (9-20) mg/dL Creatinine 0.78 (0.66-1.25) mg/dL Estimated GFR > 60.0 ML/MIN Glucose 161 H (74-106) mg/dL POC Glucometer 142 H (74 to 106) mg/dL Calcium 9.9 (8.4-10.2) mg/dL Total Bilirubin 2.30 H (0.2-1.3) mg/dL AST 37 (17-59) U/L ALT 46 (0-50) U/L Alkaline Phosphatase 63 (38-126) U/L Troponin I (0.000-0.034) ng/mL Serum Total Protein 7.0 (6.3-8.2) g/dL Albumin 4.2 (3.5-5.0) g/dL 12/02/22 12/02/22 Range/Units 06:36 11:06 WBC (4.0-10.5) x10^3/uL RBC (4.1-5.6) x10^6/uL Hgb (12.5-18.0) g/dL Hct (42-50) % MCV (78-100) fL MCH (26-32) pg MCHC (32-36) g/dL RDW (11.5-14.0) % Plt Count (150-450) x10^3/uL MPV (7.5-11.0) fL Sodium (137-145) mmol/L Potassium (3.5-5.1) mmol/L Chloride (98-107) mmol/L Carbon Dioxide (22-30) mmol/L Anion Gap (5-15) MEQ/L BUN (9-20) mg/dL Creatinine (0.66-1.25) mg/dL Estimated GFR ML/MIN Glucose (74-106) mg/dL POC Glucometer 172 H 154 H (74 to 106) mg/dL Calcium (8.4-10.2) mg/dL Total Bilirubin (0.2-1.3) mg/dL AST (17-59) U/L ALT (0-50) U/L Alkaline Phosphatase (38-126) U/L Troponin I (0.000-0.034) ng/mL Serum Total Protein (6.3-8.2) g/dL Albumin (3.5-5.0) g/dL Micro Results-Entire Visit: Accuchecks Date 12/02/22 Date 12/02/22 Time 11:35 Time 07:02 - Radiology Exams Ordered Rad Exams-Entire Visit: Radiology Procedures Category Date Time Status ABDOMEN AND PELVIS W/0 CONTRAS [CT] Stat Exams 12/01/22 03:08 Completed CHEST 1 VIEW (PORTABLE) Stat Exams 12/01/22 05:00 Completed - Procedures and Test Procedures and Tests throughout Hospitalization: Therapy Orders & Screens 12/01/22 06:50 Oxygen NASAL CANNULA 2 lpm Comment: Diagnosis: Small bowel obstruction, abdominal pain Discharge Exam General Appearance: mild distress, alert, obese Neurologic Exam: alert, oriented x 3, cooperative, normal mood/affect, nml cerebellar function, sensation nml, No motor deficits Eye Exam: PERRL, EOMI, eyes nml inspection Ears, Nose, Throat Exam: normal ENT inspection, pharynx normal, moist mucous membranes Neck Exam: normal inspection, non-tender, supple, full range of motion Respiratory Exam: normal breath sounds, lungs clear, No respiratory distress Cardiovascular Exam: regular rate/rhythm, normal heart sounds Gastrointestinal/Abdomen Exam: tenderness, distention, other (Decreased BS X4), No mass Male Genitalia Exam: deferred Rectal Exam: deferred Back Exam: normal inspection, normal range of motion, No CVA tenderness, No vertebral tenderness Extremity Exam: normal inspection, normal range of motion Skin Exam: normal color, warm, dry Final Diagnosis/Problem List - Final Discharge Diagnosis/Problem (1) Small bowel obstruction Current Visit: Yes Status: Acute Assessment & Plan: -SBO noted on CT scan. -NPO and NGT to suction. -Surgery to see. - -Prn morphine for pain 12/02 - Pain medication changed to Dilaudid Q3 PRN -Surgery recommends tx to [facility] for GI eval Code(s): K56.609 - UNSP INTESTNL OBST, UNSP TO PARTIAL VERSUS COMPLETE OBST (2) Abdominal pain Current Visit: Yes Status: Acute Assessment & Plan: - See SBO - Narcotic pain control Code(s): R10.9 - UNSPECIFIED ABDOMINAL PAIN (3) Crohn disease Current Visit: Yes Status: Acute Assessment & Plan: -Denies any recent bloody stools. -Now here with SBO Code(s): K50.90 - CROHN'S DISEASE, UNSPECIFIED, WITHOUT COMPLICATIONS (4) Diabetes mellitus, type II Current Visit: Yes Status: Acute Assessment & Plan: - NPO. - Starting D5 1/2 NS at 100ml/hr. - Accucheck and low dose SSI. - Uncontrolled - A1C 6.49 (5) Essential (primary) hypertension Current Visit: Yes Status: Acute Assessment & Plan: - Stable - Consider IV meds if needed since NPO Code(s): I10 - ESSENTIAL (PRIMARY) HYPERTENSION (6) Hypercalcemia Current Visit: Yes Status: Acute Assessment & Plan: - resolved Code(s): E83.52 - HYPERCALCEMIA (7) Transaminitis Current Visit: Yes Status: Acute Assessment & Plan: - resolved Code(s): R74.01 - ELEVATION OF LEVELS OF LIVER TRANSAMINASE LEVELS - Discharge Disposition: Home, Self-Care Condition: Stable Prescriptions: No Action Magnesium Oxide 400 mg [Mag-Ox 400] 400 mg PO TID hydroCHLOROthiazide [Hydrochlorothiazide] 12.5 mg PO DAILY Metformin HCl [Glucophage] 1,000 mg PO BID Amlodipine Besylate 5 mg [Norvasc 5 mg] 5 mg PO BID Metoprolol Tartrate 50 mg [Lopressor 50 MG] 50 mg PO BID azaTHIOprine [Azathioprine] 100 mg PO BID Cholecalciferol (Vitamin D3) [Vitamin D] 400 unit PO DAILY Clopidogrel Bisulfate [PLAVIX 75 MG Tablet] 75 mg PO DAILY Insulin Lispro [Humalog] 20 unit SQ BID Aspirin [Aspir-Low] 81 mg PO DAILY Terazosin HCl 5 mg PO HS glipiZIDE [Glipizide] 5 mg PO DAILY Tamsulosin HCl 0.4 mg [Flomax 0.4 MG] 0.4 mg PO BID Nitroglycerin 0.4 mg Tablet [Nitrostat 0.4 MG Tablet] 0.4 mg SL UD PRN PRN Reason: Chest Pain Canagliflozin [Invokana] 300 mg PO DAILY lisinopriL [Lisinopril] 40 mg PO BID PANTOPRAZOLE 40 mg Tablet [Protonix 40MG Tablet] 40 mg PO DAILY Atorvastatin Calcium [Lipitor 20MG Tablet] 20 mg PO DAILY Pregabalin 150 mg PO BID Insulin Degludec [Tresiba Flextouch U-100] 65 unit SQ HS Follow up with: CHI KIMBLE [Primary Care Provider] -
[2022-12-02] MEDS ORDERED: solu-MEDROL 40 MG, Sterile H2O 10 ml 1 ML IV SCH ×2 (13:00)
== END 2022-12-02 14:38 | disposition home or self-care (01) ==
LOC: ED 02:36 → MED SURG 05:22
PROVIDERS: ADMIT Internal Medicine; ATTEND Internal Medicine
DX: K56.609 Unspecified intestinal obstruction, unspecified as to partial versus complete obstruction (principal); R10.9 Unspecified abdominal pain; K50.90 Crohn's disease, unspecified, without complications; E11.9 Type 2 diabetes mellitus without complications; I10 Essential (primary) hypertension; E83.52 Hypercalcemia; R74.01 Elevation of levels of liver transaminase levels; N40.0 Benign prostatic hyperplasia without lower urinary tract symptoms; I25.10 Atherosclerotic heart disease of native coronary artery without angina pectoris; I25.2 Old myocardial infarction; Z79.899 Other long term (current) drug therapy; Z20.828 Contact with and (suspected) exposure to other viral communicable diseases
CPT/HCPCS: 36000; 36415; 71045; 74176; 80053; 81001; 82947; 83036; 83690; 84484; 85025; 85027; 94762; 96374; 96375; 99285; Q3014; 93268; J1170; J2270; J2405; J2920; G0378